=== PATIENT | female | born 1960 | race Caucasian/White ===

== ENCOUNTER → 2016-11-24 | Outpatient (CLI) | payer OTHER | LOC: MC.RAD 15:25 | DX: Z12.31 Encounter for screening mammogram for malignant neoplasm of breast (principal) ==

== ENCOUNTER → 2017-11-25 | Outpatient (CLI) | payer BC | LOC: COL.RAD 14:07 | DX: D25.9 Leiomyoma of uterus, unspecified (principal); G47.00 Insomnia, unspecified; R53.82 Chronic fatigue, unspecified; Z79.890 Hormone replacement therapy ==

== ENCOUNTER → 2018-02-01 | Outpatient (CLI) | payer BC | LOC: MC.RAD 12-14 08:40 | DX: Z12.31 Encounter for screening mammogram for malignant neoplasm of breast (principal); Z98.82 Breast implant status ==

== ENCOUNTER → 2018-11-29 | Outpatient (CLI) | payer BC | LOC: COL.RAD 09:00 | DX: G47.00 Insomnia, unspecified (principal); Z79.890 Hormone replacement therapy ==

== ENCOUNTER → 2019-02-16 | Outpatient (CLI) | payer BC | LOC: MC.RAD 02-02 09:45 | DX: Z12.31 Encounter for screening mammogram for malignant neoplasm of breast (principal); Z98.82 Breast implant status ==

== ENCOUNTER → 2020-09-23 | Outpatient (CLI) | payer BC | LOC: MC.RAD 08:27 | DX: Z12.31 Encounter for screening mammogram for malignant neoplasm of breast (principal); R92.0 Mammographic microcalcification found on diagnostic imaging of breast ==

== ENCOUNTER → 2020-09-27 | Outpatient (CLI) | payer BC | LOC: MC.RAD 10:50 | DX: R92.0 Mammographic microcalcification found on diagnostic imaging of breast (principal) ==

== ENCOUNTER → 2021-04-03 | Outpatient (CLI) | payer BC | LOC: MC.RAD 09:55 | DX: R92.0 Mammographic microcalcification found on diagnostic imaging of breast (principal) ==

== ENCOUNTER → 2021-09-30 | Outpatient (CLI) | payer BC | LOC: MC.RAD 07:46 | DX: Z12.31 Encounter for screening mammogram for malignant neoplasm of breast (principal) ==